=== PATIENT | female | born 1990 | race American Indian/Alaskan Native ===

== ENCOUNTER 2019-09-13 16:09 | Outpatient (CLI) | payer OTHER ==
[2019-09-13 16:49] VITALS: BP 116/73
== END 2019-09-13 17:45 | disposition home or self-care (01) ==
LOC: TRG 16:09
PROVIDERS: ATTEND Obstetrics & Gynecology
DX: O47.02 False labor before 37 completed weeks of gestation, second trimester (principal); Z3A.27 27 weeks gestation of pregnancy
CPT/HCPCS: 59025

== ENCOUNTER 2019-12-18 11:31 | Outpatient (CLI) | payer OTHER, MEDICAID ==
[2019-12-18 11:50] VITALS: BP 109/78
== END 2019-12-18 12:35 | disposition home or self-care (01) ==
LOC: TRG 11:31
PROVIDERS: ATTEND Obstetrics & Gynecology
DX: O47.1 False labor at or after 37 completed weeks of gestation (principal); Z3A.39 39 weeks gestation of pregnancy
CPT/HCPCS: 59025